=== PATIENT | female | born 1960 | race Two or more races ===

== ENCOUNTER 2020-08-14 06:30 | Day surgery (SDC) | payer OTHER ==
[~2020-08-14] VITALS: Ht 152.4 cm; Wt 69.9 kg
== END 2020-08-14 20:20 | disposition home or self-care (01) ==
LOC: CIR.AMB 06:30
PROVIDERS: ATTEND Plastic Surgery
DX: E65 Localized adiposity (principal); M62.08 Separation of muscle (nontraumatic), other site; N62 Hypertrophy of breast; Z20.828 Contact with and (suspected) exposure to other viral communicable diseases